=== PATIENT | female | born 1995 ===

== ENCOUNTER → 2024-11-27 | Outpatient (CLI) | payer OTHER ==
[2024-11-27 18:00] LABS: BASOPHILS ABSOLUTE AUTO 0.03 K/mm3 (0.00-0.23); BASOPHILS PERCENT AUTO 0 % (0-2); EOSINOPHILS ABSOLUTE AUTO 0.07 K/mm3 (0.00-0.68); EOSINOPHILS PERCENT AUTO 1 % (0-6); Hematocrit 35.1 % (33.0-51.0); Hemoglobin 12.2 g/dL (11.5-16.0); IMMATURE GRAN ABSOLUTE AUTO 0.07 K/mm3 (0.00-0.10); IMMATURE GRAN PERCENT AUTO 1 % (0-1); LYMPHOCYTES ABSOLUTE AUTO 1.91 K/mm3 (0.84-5.20); LYMPHOCYTES PERCENT AUTO 13 % (21-46); MONOCYTES ABSOLUTE AUTO 0.64 K/mm3 (0.16-1.47); MONOCYTES PERCENT AUTO 4 % (4-13); Mean Corpuscular HGB 33.1 pg (26.0-34.0); Mean Corpuscular HGB Conc 34.8 g/dL (31.5-36.5); Mean Corpuscular Volume 95 fL (80-100); Mean Platelet Volume 10.9 fL (9.1-12.4); NEUTROPHILS ABSOLUTE AUTO 12.54 K/mm3 (1.96-9.15); NEUTROPHILS PERCENT AUTO 82 % (41-73); Platelet Count 213 K/mm3 (150-400); RDW Standard Deviation 41.4 fL (35.1-46.3); Red Blood Cell Count 3.69 M/mm3 (3.80-5.20); White Blood Cell Count 15.26 K/mm3 (4.00-11.30)
== END ==
LOC: LAB SHORT 14:50 → LAB 14:50
PROVIDERS: Advanced Practice Midwife
DX: Z34.03 Encounter for supervision of normal first pregnancy, third trimester (principal)
CPT/HCPCS: 82950; 85025

== ENCOUNTER 2025-02-17 05:08 | Inpatient (IN) | payer OTHER ==
[2025-02-17] VITALS (56 sets, daily range): BP systolic 73–133; BP diastolic 50–86
[~2025-02-17] VITALS: Ht 165.1 cm; Wt 79.0 kg
[2025-02-17] MEDS ORDERED: Acetaminophen 500 MG Tab PO PRN (05:25)
[2025-02-17] MEDS ORDERED: Misoprostol 200 MCG Tab PR PRN (05:25)
[2025-02-17] MEDS ORDERED: OXYTOCIN/RINGER'S LACTATE 500 ML IV PRN (05:25)
[2025-02-17] MEDS ORDERED: FentaNYL Citrate 50 MCG/ML 2 ML Injection IV PRN (05:25)
[2025-02-17] MEDS ORDERED: Tranexamic Acid 100 ML IV PRN (05:25)
[2025-02-17] MEDS ORDERED: Ondansetron HCl 2 MG / ML 2ML Vial IV PRN ×2 (05:25→07:35)
[2025-02-17] MEDS ORDERED: Misoprostol 200 MCG Tab BC PRN (05:25)
[2025-02-17] MEDS ORDERED: Carboprost Tromethamine 250 MCG/ML 1ML Amp IM PRN (05:25)
[2025-02-17] MEDS ORDERED: Oxytocin 10 Unit / ML Vial IM PRN (05:25)
[2025-02-17] MEDS ORDERED: Methylergonovine Maleate 0.2MG / ML 1ML Amp IM PRN ×2 (05:25→17:55)
[2025-02-17] MEDS ORDERED: Lactated Ringer's 1,000 ML IV PRN ×3 (05:25→05:30)
[2025-02-17] MEDS ORDERED: ePHEDrine Sulfate 50 MG/ML 1ML Injection XX PRN (05:30)
[2025-02-17] MEDS ORDERED: Calcium Carbonate 500 MG Tab Chew PO PRN (05:30)
[2025-02-17] MEDS ORDERED: FentaNYL 2mcg/ml-Bup 0.1% Epd 250 ML EPI PRN (05:30)
[2025-02-17 06:58] LABS: BASOPHILS ABSOLUTE AUTO 0.03 K/mm3 (0.00-0.23); BASOPHILS PERCENT AUTO 0 % (0-2); EOSINOPHILS ABSOLUTE AUTO 0.03 K/mm3 (0.00-0.68); EOSINOPHILS PERCENT AUTO 0 % (0-6); Hematocrit 37.6 % (33.0-51.0); Hemoglobin 12.8 g/dL (11.5-16.0); IMMATURE GRAN ABSOLUTE AUTO 0.09 K/mm3 (0.00-0.10); IMMATURE GRAN PERCENT AUTO 1 % (0-1); LYMPHOCYTES ABSOLUTE AUTO 1.42 K/mm3 (0.84-5.20); LYMPHOCYTES PERCENT AUTO 7 % (21-46); MONOCYTES ABSOLUTE AUTO 1.15 K/mm3 (0.16-1.47); MONOCYTES PERCENT AUTO 6 % (4-13); Mean Corpuscular HGB 32.7 pg (26.0-34.0); Mean Corpuscular Volume 96 fL (80-100); Mean Platelet Volume 10.9 fL (9.1-12.4); NEUTROPHILS ABSOLUTE AUTO 16.53 K/mm3 (1.96-9.15); NEUTROPHILS PERCENT AUTO 86 % (41-73); Platelet Count 195 K/mm3 (150-400); RDW Coefficient Variation 12.3 % (11.7-14.2); RDW Standard Deviation 43.1 fL (35.1-46.3); Red Blood Cell Count 3.92 M/mm3 (3.80-5.20); White Blood Cell Count 19.25 K/mm3 (4.00-11.30)
[2025-02-17] MEDS ORDERED: Metoclopramide HCl 5MG / ML 2ML Vial IV PRN (07:35)
[2025-02-17] MEDS ORDERED: DiphenhydrAMINE HCl 50 MG/ML 1ML Vial IV PRN (07:35)
[2025-02-17] MEDS ORDERED: ePHEDrine Sulfate 50 MG/ML 1ML Injection IV PRN (07:35)
[2025-02-17] MEDS ORDERED: Naloxone HCl 0.4MG / ML 1ML Vial IV PRN (07:40)
[2025-02-17] MEDS ORDERED: Lactated Ringer's 1,000 ML IV SCH ×2 (11:35→17:10)
[2025-02-17] MEDS ORDERED: OXYTOCIN/RINGER'S LACTATE 500 ML IV SCH ×3 (11:35→16:35)
[2025-02-17] MEDS ORDERED: Ketorolac Tromethamine 30mg Vial IV PRN (17:05)
[2025-02-17] MEDS ORDERED: Ibuprofen 400 MG Tab PO PRN (17:10)
[2025-02-17] MEDS ORDERED: OxyCODONE 5 mg/Acetamin 325 mg TABLET PO PRN (17:10)
[2025-02-17] MEDS ORDERED: Acetaminophen 325 MG TABLET PO PRN (17:10)
[2025-02-17] MEDS ORDERED: Docusate Sodium 100 MG Cap PO PRN (17:10)
[2025-02-17] MEDS ORDERED: Lanolin Cream TOP PRN (17:10)
[2025-02-17] MEDS ORDERED: Witch Hazel/Glycerin PADS TOP PRN (17:10)
[2025-02-17] MEDS ORDERED: Diphth,Pertuss(Acell),Tet Vac 0.5 ML VIAL IM ONE (17:15)
[2025-02-17] MEDS ORDERED: Rho(D) Immune Globulin 300 MCG / SYR IM PRN (17:50)
[2025-02-17] MEDS ORDERED: Benzocaine Topical Anesthetic Spray 60GM TOP PRN (17:50)
[2025-02-17] MEDS ORDERED: Misoprostol 100 MCG Tab PO PRN (17:55)
[2025-02-18 03:08] VITALS: BP 109/63
[2025-02-18] MEDS ORDERED: Prenatal Vit/FE Fumarate/FA 1 Tab PO SCH (09:00)
[2025-02-18 11:01] LABS: Hematocrit 32.2 % (33.0-51.0); Hemoglobin 11.1 g/dL (11.5-16.0); Mean Corpuscular HGB 33.2 pg (26.0-34.0); Mean Corpuscular HGB Conc 34.5 g/dL (31.5-36.5); Mean Corpuscular Volume 96 fL (80-100); Mean Platelet Volume 10.7 fL (9.1-12.4); Platelet Count 178 K/mm3 (150-400); RDW Coefficient Variation 12.6 % (11.7-14.2); RDW Standard Deviation 44.8 fL (35.1-46.3); Red Blood Cell Count 3.34 M/mm3 (3.80-5.20); White Blood Cell Count 20.48 K/mm3 (4.00-11.30)
[2025-02-18 12:42] VITALS: BP 117/75
[2025-02-20 15:14] LABS: HEPATITIS C AB CIA INTERP Negative (Negative); HEPATITIS C ANTIBODY CIA INDEX <0.02 IV
== END 2025-02-18 16:42 | disposition home or self-care (01) | DRG 807 ==
LOC: OBS 05:08 → BC 05:12 → OBS 05:27 → BC 05:28
PROVIDERS: ADMIT Advanced Practice Midwife
PROC: 10E0XZZ Delivery of Products of Conception, External Approach (ICD-10-PCS; principal; 2025-02-17)
DX: O48.0 Post-term pregnancy (principal); Z37.0 Single live birth; Z3A.40 40 weeks gestation of pregnancy; O70.0 First degree perineal laceration during delivery
CPT/HCPCS: 36415; 51702; 59025; 85025; 85027; 86803; 86850; 86900; 86901; 99214; A9270; J1885; J2590; J7120

== ENCOUNTER 2025-06-25 11:10 | Emergency (ER) | payer OTHER ==
[~2025-06-25] VITALS: Ht 165.1 cm; Wt 65.8 kg
[2025-06-25 11:49] LABS: BASOPHILS ABSOLUTE AUTO 0.04 K/mm3 (0.00-0.23); BASOPHILS PERCENT AUTO 0 % (0-2); EOSINOPHILS ABSOLUTE AUTO 0.11 K/mm3 (0.00-0.68); EOSINOPHILS PERCENT AUTO 1 % (0-6); Hematocrit 40.0 % (33.0-51.0); Hemoglobin 13.3 g/dL (11.5-16.0); IMMATURE GRAN ABSOLUTE AUTO 0.03 K/mm3 (0.00-0.10); IMMATURE GRAN PERCENT AUTO 0 % (0-1); LYMPHOCYTES ABSOLUTE AUTO 2.14 K/mm3 (0.84-5.20); LYMPHOCYTES PERCENT AUTO 21 % (21-46); MONOCYTES ABSOLUTE AUTO 0.82 K/mm3 (0.16-1.47); MONOCYTES PERCENT AUTO 8 % (4-13); Mean Corpuscular HGB Conc 33.3 g/dL (31.5-36.5); Mean Corpuscular Volume 97 fL (80-100); NEUTROPHILS ABSOLUTE AUTO 7.06 K/mm3 (1.96-9.15); NEUTROPHILS PERCENT AUTO 69 % (41-73); NRBC ABSOLUTE 0.00 K/mm3 (0.00-0.02); NRBC Auto 0.0 /100 WBC (0.0-0.2); Platelet Count 254 K/mm3 (150-400); RDW Coefficient Variation 11.4 % (11.7-14.2); RDW Standard Deviation 40.5 fL (35.1-46.3)
[2025-06-25 11:55] LABS: Source, Urine Voided
[2025-06-25 12:05] LABS: Bilirubin, Urine Neg (Neg); Color, Urine Yellow (P-Yellow); Glucose Qualitative, Urine Neg (Neg); Ketones, Urine Neg (Neg); Leukocyte Esterase, Urine Neg (Neg); Protein, Urine Neg (Neg); Specific Gravity, Urine 1.020 (1.003-1.022); Urobilinogen, Urine NORM (Normal)
[2025-06-25] MEDS ORDERED: PRENATAL TABLE1 EAC2 PO (12:25)
[2025-06-25 12:31] LABS: White Blood Cells, Urine Not Seen /hpf (0-5)
== END 2025-06-25 13:25 | disposition home or self-care (01) ==
LOC: ER 11:10
PROVIDERS: Emergency Medicine
DX: O20.0 Threatened abortion (principal); Z3A.09 9 weeks gestation of pregnancy
CPT/HCPCS: 36415; 76801; 81001; 84702; 85025; 99284-25

== ENCOUNTER → 2025-06-28 | Outpatient (CLI) | payer OTHER ==
[~2025-06-28] MED LIST: PRENATAL TABLE1 EAC2 PO
== END ==
LOC: LAB SHORT 11:40 → LAB 11:40
DX: O20.0 Threatened abortion (principal)
CPT/HCPCS: 84702